=== PATIENT | female | born 1950 | race Two or more races ===

== ENCOUNTER → 2017-02-21 | Outpatient (CLI) | payer OTHER, MEDICAID ==
[~2017-02-21] MED LIST: ALBUAER3 IN; ASPI81TA27 PO; ESCI10TA53; FLUT250M2 INH; GABA-339; HYDR-3682; LACT10SO3 PO; PANT40TA2 PO; PROP60CA8 OR; Rifaximin PO; SPIR25TA88; TIOTCAP IN; TRAM50TA2 PO; TRAZ50T PO; URSO300C9
== END | disposition home or self-care (01) ==
LOC: XYW 09:02
PROVIDERS: ATTEND Internal Medicine
DX: R10.11 Right upper quadrant pain (principal)
CPT/HCPCS: 78226; A9537

== ENCOUNTER → 2017-06-30 | Outpatient (CLI) | payer OTHER, MEDICAID ==
[2017-06-30 15:03] LABS: Basophils # (auto) 0 uL; Basophils % (auto) 0.2 % (0.0-2.0); Eosinophils # (auto) 0 uL; Hematocrit 36.2 % (36.0-46.0); Hemoglobin 11.9 g/dL (12.2-16.2); Lymphocytes % (auto) 20.9 % (10.0-50.0); Mean Corpuscular Hemoglobin 28.3 pg (28.0-32.0); Mean Corpuscular Hgb Conc. 32.9 g/dL (32.0-36.0); Mean Platelet Volume 7.8 fL (6.9-10.8); Monocytes # (auto) 0.7 uL; Monocytes % (auto) 14.9 % (0.0-12.0); Nucleated Red Blood Cells % 0.1 %; Platelet Count (auto) 106 10^3/uL (140-450); Red Cell Distribution Width 18.6 % (11.8-14.3); White Blood Cell 4.7 10^3/uL (4.4-10.8)
[2017-06-30 15:20] LABS: INR 1.18 (0.9-1.15); Partial Thromboplastin Time 29.2 sec (22.64-33.71); Prothrombin Time 12.9 sec (9.37-12.3)
[2017-06-30 15:37] LABS: Albumin 3.1 g/dL (3.4-5.0); BUN/Creatinine Ratio 10.5; Bilirubin, Total 0.9 mg/dL (0.2-1.0); Calcium 8.3 mg/dL (8.5-10.1); Potassium 3.5 mmol/L (3.5-5.1); Total Protein 6.5 g/dL (6.4-8.2)
== END | disposition home or self-care (01) ==
LOC: LAB 14:40
PROVIDERS: ATTEND Internal Medicine
DX: M34.9 Systemic sclerosis, unspecified (principal); K74.5 Biliary cirrhosis, unspecified
CPT/HCPCS: 36415; 80053; 82140; 85025; 85610; 85730

== ENCOUNTER → 2017-09-25 | Day surgery (SDC) | payer OTHER, MEDICAID ==
[2017-09-22 12:24] LABS: Basophils # (auto) 0 uL; Basophils % (auto) 0.1 % (0.0-2.0); Eosinophils # (auto) 0 uL; Hematocrit 35.6 % (36.0-46.0); Hemoglobin 11.5 g/dL (12.2-16.2); Lymphocytes # (auto) 0.9 uL; Lymphocytes % (auto) 22.6 % (10.0-50.0); Mean Corpuscular Hemoglobin 28.3 pg (28.0-32.0); Mean Corpuscular Hgb Conc. 32.2 g/dL (32.0-36.0); Mean Corpuscular Volume 87.8 fL (80.0-100.0); Monocytes # (auto) 0.5 uL; Monocytes % (auto) 12.2 % (0.0-12.0); Neutrophils # (auto) 2.4 uL; Neutrophils % (auto) 65.1 % (37.0-80.0); Platelet Count (auto) 118 10^3/uL (140-450); Red Blood Cells 4.06 10^6/uL (4.0-5.20); Red Cell Distribution Width 18.3 % (11.8-14.3); White Blood Cell 3.8 10^3/uL (4.4-10.8)
[2017-09-22 12:41] LABS: INR 1.14 (0.9-1.15); Partial Thromboplastin Time 28.4 sec (22.64-33.71); Prothrombin Time 12.4 sec (9.37-12.3)
[~2017-09-25] VITALS: Ht 147.3 cm; Wt 65.8 kg
[~2017-09-25] MED LIST changes: +FLUMAZENIL 0.1 MG/ML INJ 10ML MDV IV ONE; +FURO20TA3 PO; +LIDOCAINE VISCOUS 2% 15ML UD ONE; +MIDAZOLAM HCL 5 MG/ML-1ML VIAL ONE; +NALOXONE HCL 0.4 MG/ML VIAL ONE; +SODIUM CHLORIDE LOCK 0 ML ONE; +SUCR1TAB PO; +diphenhdrAMINE HCL 50 MG/1 ML VL ONE; +fentaNYL CITRATE 100 MCG/2 ML VL ONE
== END | disposition home or self-care (01) ==
LOC: GI 07:58
PROVIDERS: ATTEND Internal Medicine Gastroenterology
DX: I85.00 Esophageal varices without bleeding (principal); Z53.8 Procedure and treatment not carried out for other reasons; E66.9 Obesity, unspecified; Z68.30 Body mass index [BMI] 30.0-30.9, adult; J44.9 Chronic obstructive pulmonary disease, unspecified; F32.9 Major depressive disorder, single episode, unspecified
CPT/HCPCS: 36415; 82105; 85025; 85610; 85730; J2250

== ENCOUNTER → 2017-10-05 | Outpatient (CLI) | payer OTHER, MEDICAID ==
[~2017-10-05] MED LIST changes: -FLUMAZENIL 0.1 MG/ML INJ 10ML MDV IV ONE; -LIDOCAINE VISCOUS 2% 15ML UD ONE; -MIDAZOLAM HCL 5 MG/ML-1ML VIAL ONE; -NALOXONE HCL 0.4 MG/ML VIAL ONE; -SODIUM CHLORIDE LOCK 0 ML ONE; -diphenhdrAMINE HCL 50 MG/1 ML VL ONE; -fentaNYL CITRATE 100 MCG/2 ML VL ONE
[2017-10-05 13:16] LABS: Basophils # (auto) 0 uL; Basophils % (auto) 0.2 % (0.0-2.0); Eosinophils # (auto) 0 uL; Hematocrit 36.8 % (36.0-46.0); Hemoglobin 11.7 g/dL (12.2-16.2); Lymphocytes # (auto) 1.3 uL; Mean Corpuscular Hemoglobin 28.2 pg (28.0-32.0); Mean Corpuscular Hgb Conc. 31.8 g/dL (32.0-36.0); Mean Corpuscular Volume 88.8 fL (80.0-100.0); Monocytes # (auto) 0.5 uL; Monocytes % (auto) 12.5 % (0.0-12.0); Neutrophils # (auto) 2.5 uL; Neutrophils % (auto) 58.3 % (37.0-80.0); Platelet Count (auto) 121 10^3/uL (140-450); Red Blood Cells 4.15 10^6/uL (4.0-5.20); Red Cell Distribution Width 18.1 % (11.8-14.3); White Blood Cell 4.4 10^3/uL (4.4-10.8)
[2017-10-05 13:28] LABS: INR 1.09 (0.9-1.15); Prothrombin Time 11.9 sec (9.37-12.3)
[2017-10-05 13:47] LABS: Albumin 3.2 g/dL (3.4-5.0); BUN/Creatinine Ratio 11.2; Bilirubin, Total 0.9 mg/dL (0.2-1.0); Calcium 8.5 mg/dL (8.5-10.1); Potassium 3.7 mmol/L (3.5-5.1); Total Protein 6.8 g/dL (6.4-8.2)
== END | disposition home or self-care (01) ==
LOC: LAB 12:45
PROVIDERS: ATTEND Internal Medicine
DX: G47.00 Insomnia, unspecified (principal); M34.9 Systemic sclerosis, unspecified; K74.3 Primary biliary cirrhosis
CPT/HCPCS: 36415; 80053; 82140; 84439; 84443; 85025; 85610; 85652; 85730

== ENCOUNTER → 2017-12-07 | Outpatient (CLI) | payer OTHER, MEDICAID ==
[2017-12-07 13:29] LABS: Basophils # (auto) 0 uL; Basophils % (auto) 0.1 % (0.0-2.0); Eosinophils # (auto) 0 uL; Hematocrit 35.6 % (36.0-46.0); Hemoglobin 11.5 g/dL (12.2-16.2); Lymphocytes # (auto) 0.5 uL; Lymphocytes % (auto) 8.4 % (10.0-50.0); Mean Corpuscular Hemoglobin 27.6 pg (28.0-32.0); Mean Corpuscular Hgb Conc. 32.4 g/dL (32.0-36.0); Mean Corpuscular Volume 85.2 fL (80.0-100.0); Monocytes # (auto) 0.2 uL; Monocytes % (auto) 4.4 % (0.0-12.0); Neutrophils # (auto) 4.7 uL; Neutrophils % (auto) 87.1 % (37.0-80.0); Platelet Count (auto) 105 10^3/uL (140-450); Red Blood Cells 4.18 10^6/uL (4.0-5.20); Red Cell Distribution Width 18.5 % (11.8-14.3); White Blood Cell 5.4 10^3/uL (4.4-10.8)
[2017-12-07 13:41] LABS: INR 1.1 (0.9-1.15); Partial Thromboplastin Time 27.4 sec (22.64-33.71)
[2017-12-07 14:08] LABS: Albumin 3.2 g/dL (3.4-5.0); BUN/Creatinine Ratio 16.3; Bilirubin, Total 0.8 mg/dL (0.2-1.0); Calcium 8.4 mg/dL (8.5-10.1); Total Protein 6.8 g/dL (6.4-8.2)
== END | disposition home or self-care (01) ==
LOC: LAB 13:03
PROVIDERS: ATTEND Internal Medicine
DX: K74.3 Primary biliary cirrhosis (principal)
CPT/HCPCS: 36415; 80053; 82140; 85025; 85610; 85730

== ENCOUNTER → 2018-06-15 | Outpatient (CLI) | payer OTHER, MEDICAID ==
[~2018-06-15] MED LIST changes: +PROP60CA34 OR; -PROP60CA8 OR
[2018-06-15 15:05] LABS: Albumin 2.8 g/dL (3.4-5.0); BUN/Creatinine Ratio 9.8; Calcium 8.3 mg/dL (8.5-10.1); Potassium 3.6 mmol/L (3.5-5.1)
[2018-06-15 15:08] LABS: Bilirubin, Total 0.9 mg/dL (0.2-1.0); Total Protein 6.1 g/dL (6.4-8.2)
== END | disposition home or self-care (01) ==
LOC: LAB 14:23
PROVIDERS: ATTEND Internal Medicine
DX: K74.3 Primary biliary cirrhosis (principal); E03.9 Hypothyroidism, unspecified
CPT/HCPCS: 36415; 80053; 82140; 84439; 84443

== ENCOUNTER → 2018-08-24 | Outpatient (CLI) | payer OTHER, MEDICAID ==
[2018-08-24 14:47] LABS: Basophils # (auto) 0 uL; Basophils % (auto) 0.3 % (0.0-2.0); Eosinophils # (auto) 0 uL; Hematocrit 36.9 % (36.0-46.0); Hemoglobin 11.8 g/dL (12.2-16.2); Lymphocytes # (auto) 0.7 uL; Lymphocytes % (auto) 21.5 % (10.0-50.0); Mean Corpuscular Hemoglobin 29.7 pg (28.0-32.0); Mean Corpuscular Hgb Conc. 32.1 g/dL (32.0-36.0); Mean Corpuscular Volume 92.4 fL (80.0-100.0); Monocytes # (auto) 0.4 uL; Monocytes % (auto) 11.8 % (0.0-12.0); Neutrophils # (auto) 2.1 uL; Neutrophils % (auto) 66.4 % (37.0-80.0); Nucleated Red Blood Cells % 0.1 %; Platelet Count (auto) 105 10^3/uL (140-450); Red Blood Cells 3.99 10^6/uL (4.0-5.20); White Blood Cell 3.1 10^3/uL (4.4-10.8)
[2018-08-24 14:58] LABS: INR 1.09 (0.9-1.15); Partial Thromboplastin Time 26.6 sec (23.78-33.04); Prothrombin Time 11.6 sec (9.27-12.13)
[2018-08-24 15:10] LABS: Potassium 4.2 mmol/L (3.5-5.1)
[2018-08-24 15:19] LABS: Albumin 3.1 g/dL (3.4-5.0); BUN/Creatinine Ratio 11.1; Bilirubin, Total 0.9 mg/dL (0.2-1.0); Calcium 9.2 mg/dL (8.5-10.1); Total Protein 6.2 g/dL (6.4-8.2)
== END | disposition home or self-care (01) ==
LOC: LAB 14:01
PROVIDERS: ATTEND Internal Medicine
DX: K74.3 Primary biliary cirrhosis (principal)
CPT/HCPCS: 36415; 80053; 82140; 85025; 85610; 85730

== ENCOUNTER → 2018-08-30 | Outpatient (CLI) | payer OTHER, MEDICAID | END | disposition home or self-care (01) | LOC: LAB 13:41 | PROVIDERS: ATTEND Internal Medicine | DX: K72.90 Hepatic failure, unspecified without coma (principal) | CPT/HCPCS: 82140 ==

== ENCOUNTER → 2018-10-26 | Day surgery (SDC) | payer OTHER, MEDICAID ==
[2018-10-23 11:07] LABS: Basophils # (auto) 0 uL; Basophils % (auto) 0.4 % (0.0-2.0); Eosinophils # (auto) 0 uL; Hematocrit 37.3 % (36.0-46.0); Hemoglobin 12.1 g/dL (12.2-16.2); Lymphocytes # (auto) 0.9 uL; Lymphocytes % (auto) 24.3 % (10.0-50.0); Mean Corpuscular Hemoglobin 29.6 pg (28.0-32.0); Mean Corpuscular Hgb Conc. 32.4 g/dL (32.0-36.0); Mean Corpuscular Volume 91.2 fL (80.0-100.0); Monocytes # (auto) 0.5 uL; Monocytes % (auto) 13.7 % (0.0-12.0); Neutrophils # (auto) 2.4 uL; Neutrophils % (auto) 61.6 % (37.0-80.0); Nucleated Red Blood Cells % 0.1 %; Platelet Count (auto) 102 10^3/uL (140-450); Red Cell Distribution Width 17.9 % (11.8-14.3); White Blood Cell 3.8 10^3/uL (4.4-10.8)
[2018-10-23 11:20] LABS: INR 1.17 (0.9-1.15); Partial Thromboplastin Time 27.6 sec (23.78-33.04); Prothrombin Time 12.4 sec (9.27-12.13)
[2018-10-23 11:22] LABS: Urine Bacteria NONE SEEN /hpf (None Seen); Urine Blood TRACE /uL (Negative); Urine Specific Gravity 1.023 (1.001-1.035); Urine WBC 22 /hpf (0 - 5)
[~2018-10-26] VITALS: Ht 147.3 cm; Wt 69.9 kg
[~2018-10-26] MED LIST changes: +ALBU18 IN; +ESCI10TA53 PO; +GABA-339 PO; +HYDR-3682 PO; +LIDOCAINE VISCOUS 2% 15ML UD ONE; +MIDAZOLAM HCL 5 MG/ML-1ML VIAL ONE; +POTA-167 PO; +PROP60CA34 PO; +RIFA550T PO; +SODIUM CHLORIDE LOCK 10 ML ONE; +SPIR25TA88 PO; +TRAZ50TA2 PO; +URSO300C9 PO; +diphenhdrAMINE HCL 50 MG/1 ML VL ONE; +fentaNYL CITRATE 100 MCG/2 ML VL ONE
[2018-10-26 10:31] VITALS: BP 99/62
== END | disposition home or self-care (01) ==
LOC: MERGE 08:51 → GI 08:51
PROVIDERS: ATTEND Internal Medicine Gastroenterology
DX: I86.4 Gastric varices (principal); K74.60 Unspecified cirrhosis of liver; I85.10 Secondary esophageal varices without bleeding; J44.9 Chronic obstructive pulmonary disease, unspecified; E66.9 Obesity, unspecified; F41.9 Anxiety disorder, unspecified; F32.9 Major depressive disorder, single episode, unspecified; F17.210 Nicotine dependence, cigarettes, uncomplicated; K21.9 Gastro-esophageal reflux disease without esophagitis; M06.9 Rheumatoid arthritis, unspecified; Z80.8 Family history of malignant neoplasm of other organs or systems
CPT/HCPCS: 36415; 43235; 81001; 85025; 85610; 85730; A6257; J2250; J3010; J7030

== ENCOUNTER → 2018-12-03 | Outpatient (CLI) | payer OTHER, MEDICAID ==
[~2018-12-03] MED LIST changes: -LIDOCAINE VISCOUS 2% 15ML UD ONE; -MIDAZOLAM HCL 5 MG/ML-1ML VIAL ONE; -SODIUM CHLORIDE LOCK 10 ML ONE; -diphenhdrAMINE HCL 50 MG/1 ML VL ONE; -fentaNYL CITRATE 100 MCG/2 ML VL ONE
== END | disposition home or self-care (01) ==
LOC: LAB 14:29
PROVIDERS: ATTEND Internal Medicine
DX: R10.11 Right upper quadrant pain (principal)
CPT/HCPCS: 36415; 82565; 84520

== ENCOUNTER → 2019-03-04 | Outpatient (CLI) | payer OTHER, MEDICAID ==
[2019-03-04 13:59] LABS: Basophils # (auto) 0 uL; Basophils % (auto) 0.3 % (0.0-2.0); Eosinophils # (auto) 0 uL; Hematocrit 36.3 % (36.0-46.0); Hemoglobin 11.7 g/dL (12.2-16.2); Lymphocytes # (auto) 0.8 uL; Lymphocytes % (auto) 23.4 % (10.0-50.0); Mean Corpuscular Hemoglobin 28.8 pg (28.0-32.0); Mean Corpuscular Hgb Conc. 32.3 g/dL (32.0-36.0); Monocytes # (auto) 0.4 uL; Monocytes % (auto) 11.5 % (0.0-12.0); Neutrophils # (auto) 2.1 uL; Neutrophils % (auto) 64.8 % (37.0-80.0); Platelet Count (auto) 90 10^3/uL (140-450); Red Blood Cells 4.08 10^6/uL (4.0-5.20); Red Cell Distribution Width 17.3 % (11.8-14.3); White Blood Cell 3.2 10^3/uL (4.4-10.8)
[2019-03-04 14:27] LABS: INR 1.15 (0.9-1.15); Partial Thromboplastin Time 24.3 sec (23.64-32.05)
[2019-03-04 14:44] LABS: Albumin 2.9 g/dL (3.4-5.0); Calcium 8.8 mg/dL (8.5-10.1)
[2019-03-04 14:49] LABS: Bilirubin, Total 1.3 mg/dL (0.2-1.0); Total Protein 5.9 g/dL (6.4-8.2)
== END | disposition home or self-care (01) ==
LOC: LAB 13:44
PROVIDERS: ATTEND Internal Medicine Gastroenterology
DX: K74.69 Other cirrhosis of liver (principal); K72.90 Hepatic failure, unspecified without coma; R18.8 Other ascites; J44.9 Chronic obstructive pulmonary disease, unspecified; K21.9 Gastro-esophageal reflux disease without esophagitis
CPT/HCPCS: 36415; 80053; 82105; 85025; 85610; 85730

== ENCOUNTER → 2019-05-10 | Outpatient (CLI) | payer OTHER, MEDICAID ==
[~2019-05-10] MED LIST changes: +ASPI-404 PO; -ASPI81TA27 PO
[2019-05-10 16:30] LABS: Basophils # (auto) 0 uL; Basophils % (auto) 0.2 % (0.0-2.0); Eosinophils # (auto) 0 uL; Hematocrit 34.9 % (36.0-46.0); Hemoglobin 11.3 g/dL (12.2-16.2); Lymphocytes # (auto) 0.7 uL; Lymphocytes % (auto) 21.5 % (10.0-50.0); Mean Corpuscular Hemoglobin 28.5 pg (28.0-32.0); Mean Corpuscular Hgb Conc. 32.4 g/dL (32.0-36.0); Mean Corpuscular Volume 88.1 fL (80.0-100.0); Monocytes # (auto) 0.3 uL; Monocytes % (auto) 9.9 % (0.0-12.0); Neutrophils # (auto) 2.2 uL; Neutrophils % (auto) 68.4 % (37.0-80.0); Platelet Count (auto) 79 10^3/uL (140-450); Red Blood Cells 3.96 10^6/uL (4.0-5.20); Red Cell Distribution Width 18.8 % (11.8-14.3); White Blood Cell 3.2 10^3/uL (4.4-10.8)
[2019-05-10 17:03] LABS: Albumin 3.1 g/dL (3.4-5.0); BUN/Creatinine Ratio 12.3; Calcium 8.5 mg/dL (8.5-10.1); Potassium 3.6 mmol/L (3.5-5.1)
[2019-05-10 17:08] LABS: Bilirubin, Total 1.1 mg/dL (0.2-1.0); Total Protein 5.8 g/dL (6.4-8.2)
== END | disposition home or self-care (01) ==
LOC: LAB 16:02
PROVIDERS: ATTEND Internal Medicine
DX: K21.9 Gastro-esophageal reflux disease without esophagitis (principal); K74.3 Primary biliary cirrhosis
CPT/HCPCS: 36415; 80053; 84439; 84443; 84484; 85025; 85652

== ENCOUNTER → 2019-08-21 | Outpatient (CLI) | payer OTHER, MEDICAID | END | disposition home or self-care (01) | LOC: XY 09:27 | PROVIDERS: ATTEND Internal Medicine | DX: I06.1 Rheumatic aortic insufficiency (principal); R00.1 Bradycardia, unspecified; I44.7 Left bundle-branch block, unspecified; I27.20 Pulmonary hypertension, unspecified | CPT/HCPCS: 93306 ==

== ENCOUNTER → 2019-08-21 | Outpatient (CLI) | payer OTHER, MEDICAID ==
[2019-08-21 11:31] LABS: Basophils # (auto) 0 uL; Basophils % (auto) 0.4 % (0.0-2.0); Eosinophils # (auto) 0 uL; Hematocrit 33.8 % (36.0-46.0); Lymphocytes # (auto) 0.7 uL; Lymphocytes % (auto) 22.3 % (10.0-50.0); Mean Corpuscular Hemoglobin 28.5 pg (28.0-32.0); Mean Corpuscular Hgb Conc. 32.6 g/dL (32.0-36.0); Mean Corpuscular Volume 87.6 fL (80.0-100.0); Monocytes # (auto) 0.4 uL; Monocytes % (auto) 11.8 % (0.0-12.0); Neutrophils # (auto) 2.1 uL; Neutrophils % (auto) 65.5 % (37.0-80.0); Platelet Count (auto) 77 10^3/uL (140-450); Red Blood Cells 3.86 10^6/uL (4.0-5.20); Red Cell Distribution Width 18.7 % (11.8-14.3); White Blood Cell 3.2 10^3/uL (4.4-10.8)
[2019-08-21 11:44] LABS: Urine Bacteria MANY /hpf (None Seen); Urine Blood Negative /uL (Negative); Urine Specific Gravity 1.007 (1.001-1.035); Urine WBC 15 /hpf (0 - 5)
[2019-08-21 11:50] LABS: Potassium 3.1 mmol/L (3.5-5.1)
[2019-08-21 11:55] LABS: BUN/Creatinine Ratio 12.4; Bilirubin, Total 1.5 mg/dL (0.2-1.0)
[2019-08-21 12:16] LABS: INR 1.35 (0.9-1.15)
== END | disposition home or self-care (01) ==
LOC: LAB 10:49
PROVIDERS: ATTEND Internal Medicine Gastroenterology
DX: K21.9 Gastro-esophageal reflux disease without esophagitis (principal); I20.9 Angina pectoris, unspecified; K74.69 Other cirrhosis of liver; F41.9 Anxiety disorder, unspecified
CPT/HCPCS: 36415; 80053; 80061; 81001; 82105; 84439; 84443; 85025; 85610; 85652

== ENCOUNTER → 2019-09-04 | Outpatient (CLI) | payer OTHER, MEDICAID ==
[~2019-09-04] VITALS: Ht 147.3 cm; Wt 65.8 kg
[~2019-09-04] MED LIST changes: +ADENOSINE 55 MG in GIVE UN-DILUTED 0 ML IV STA
== END | disposition home or self-care (01) ==
LOC: XY 08:10
PROVIDERS: ATTEND Internal Medicine
DX: I48.91 Unspecified atrial fibrillation (principal); I10 Essential (primary) hypertension
CPT/HCPCS: 78452; 93017; A9500; J0153

== ENCOUNTER → 2019-11-13 | Outpatient (CLI) | payer OTHER, MEDICAID ==
[~2019-11-13] MED LIST changes: -ADENOSINE 55 MG in GIVE UN-DILUTED 0 ML IV STA
[2019-11-13 14:41] LABS: Basophils # (auto) 0 uL; Basophils % (auto) 0.2 % (0.0-2.0); Eosinophils # (auto) 0 uL; Hematocrit 35.7 % (36.0-46.0); Hemoglobin 11.4 g/dL (12.2-16.2); Lymphocytes # (auto) 0.6 uL; Mean Corpuscular Hemoglobin 28.9 pg (28.0-32.0); Mean Corpuscular Hgb Conc. 31.9 g/dL (32.0-36.0); Mean Corpuscular Volume 90.5 fL (80.0-100.0); Monocytes # (auto) 0.5 uL; Monocytes % (auto) 13.6 % (0.0-12.0); Neutrophils # (auto) 2.5 uL; Neutrophils % (auto) 69.2 % (37.0-80.0); Platelet Count (auto) 99 10^3/uL (140-450); Red Blood Cells 3.94 10^6/uL (4.0-5.20); White Blood Cell 3.6 10^3/uL (4.4-10.8)
[2019-11-13 14:43] LABS: Red Cell Distribution Width 24.4 % (11.8-14.3)
[2019-11-13 14:49] LABS: Urine Bacteria FEW /hpf (None Seen); Urine Blood Negative /uL (Negative); Urine Hyaline Cast MANY /lpf (0 - 2); Urine WBC 36 /hpf (0 - 5)
[2019-11-13 14:58] LABS: Albumin 2.4 g/dL (3.4-5.0); Calcium 8.1 mg/dL (8.5-10.1)
[2019-11-13 15:01] LABS: BUN/Creatinine Ratio 14.7; Bilirubin, Total 1.4 mg/dL (0.2-1.0)
== END | disposition home or self-care (01) ==
LOC: LAB 14:00
PROVIDERS: ATTEND Internal Medicine
DX: K74.3 Primary biliary cirrhosis (principal); M34.9 Systemic sclerosis, unspecified
CPT/HCPCS: 36415; 80053; 81001; 85025

== ENCOUNTER 2019-11-25 18:16 | Inpatient (IN) | payer OTHER, MEDICAID ==
[~2019-11-25] VITALS: Ht 142.2 cm; Wt 74.2 kg
[2019-11-25 20:04] LABS: Basophils # (auto) 0 10 ^3/uL (0-0.2); Basophils % (auto) 0.2 % (0.0-2.0); Eosinophils # (auto) 0 10 ^3/uL (0-0.8); Hematocrit 35.6 % (36.0-46.0); Hemoglobin 11.6 g/dL (12.2-16.2); Lymphocytes # (auto) 0.8 10 ^3/uL (0.4-5.4); Lymphocytes % (auto) 18.7 % (10.0-50.0); Mean Corpuscular Hemoglobin 29.5 pg (28.0-32.0); Mean Corpuscular Hgb Conc. 32.5 g/dL (32.0-36.0); Mean Corpuscular Volume 90.6 fL (80.0-100.0); Monocytes # (auto) 0.6 10 ^3/uL (0-1.3); Monocytes % (auto) 15.6 % (0.0-12.0); Neutrophils # (auto) 2.7 10 ^3/uL (1.6-8.6); Neutrophils % (auto) 65.5 % (37.0-80.0); Nucleated Red Blood Cells % 0.1 %; Platelet Count (auto) 85 10^3/uL (140-450); Red Blood Cells 3.94 10^6/uL (4.0-5.20); White Blood Cell 4.2 10^3/uL (4.4-10.8)
[2019-11-25 20:07] LABS: Red Cell Distribution Width 22.8 % (11.8-14.3)
[2019-11-25] MEDS ORDERED: FUROSEMIDE 20 MG/2 ML VIAL IV ONE (20:15)
[2019-11-25 20:43] LABS: Blood Urea Nitrogen 16 mg/dL (7-18); Calcium 7.9 mg/dL (8.5-10.1); Carbon Dioxide 20 mmol/L (21-32); Glucose 96 mg/dL (74-106)
[2019-11-25 20:48] LABS: Alanine Aminotransferase 19 U/L (13-56); Albumin 2.4 g/dL (3.4-5.0); Aspartate Aminotransferase 40 U/L (15-37); Bilirubin, Total 1.2 mg/dL (0.2-1.0); Magnesium 1.8 mg/dL (1.6-2.6)
[2019-11-25 21:05] LABS: Alkaline Phosphatase 117 U/L (45-117); Anion Gap 8 (5-15); BUN/Creatinine Ratio 18.6; Chloride 111 mmol/L (98-107); GFR African American 84 mL/min; GFR Non-African American 70 mL/min; Potassium 3.4 mmol/L (3.5-5.1); Sodium 139 mmol/L (136-145); Total Protein 5.3 g/dL (6.4-8.2)
[2019-11-25] MEDS ORDERED: IOHEXOL 300 MG/ML 100ML BOTTLE IJ ONE (21:57)
[2019-11-25] MEDS ORDERED: LACTULOSE 20Gm/30ML SOLN PO ONE (23:00)
[2019-11-25] MEDS ORDERED: metroNIDAZOLE 500MG/100ML 100 ML IV ONE (23:30)
[2019-11-25] MEDS ORDERED: CIPROFLOXACIN 400MG/200ML 200 ML IV ONE (23:30)
[2019-11-25] MEDS ORDERED: SODIUM CHLORIDE 0.9% 1,000 ML IV ONE (23:30)
[2019-11-26 01:14] LABS: Urine Bacteria FEW /hpf (None Seen); Urine Blood Negative /uL (Negative); Urine Hyaline Cast FEW /lpf (0 - 2); Urine Specific Gravity 1.015 (1.001-1.035)
[2019-11-26 01:15] LABS: Urine WBC 5 /hpf (0 - 5)
[2019-11-26] MEDS ORDERED: diphenhdrAMINE HCL 50 MG/1 ML VL IV ONE (02:00)
[2019-11-26] MEDS ORDERED: ONDANSETRON HCL 4 MG/2 ML VIAL IV PRN (02:30)
[2019-11-26] MEDS ORDERED: TEMAZEPAM 15 MG CAP PO PRN (02:30)
[2019-11-26] MEDS ORDERED: MORPHINE SULF INJ 2 MG/ML SYRINGE 1ML IV PRN (03:15)
[2019-11-26] MEDS ORDERED: NITROGLYCERIN 0.4 MG SL TAB SL PRN (03:15)
[2019-11-26 03:29] LABS: INR 1.36 (0.9-1.15); Partial Thromboplastin Time 29.9 sec (23.64-32.05)
[2019-11-26] MEDS ORDERED: ENOXAPARIN SOD 100 MG/1 ML SYRINGE SC ONE (04:00)
[2019-11-26 05:00] VITALS: BP 109/58
[2019-11-26] MEDS: PROPRANOLOL HCL 20 MG TAB PO SCH ×2 (06:24→14:00)
[2019-11-26 09:00] VITALS: BP 104/51
[2019-11-26] MEDS ORDERED: ASPirin 81 mg TAB PO SCH (10:00)
[2019-11-26] MEDS: LACTULOSE 20Gm/30ML SOLN PO SCH ×2 (10:01→22:40)
[2019-11-26] MEDS: cefTRIAXone 1GM/50ML D5W 50 ML IV SCH (10:01)
[2019-11-26] MEDS: SPIRONOLACTONE 25 MG TAB PO SCH (10:01)
[2019-11-26] MEDS: PANTOPRAZOLE 40 MG TAB PO SCH ×2 (10:02→22:41)
[2019-11-26] MEDS: rifAXIMin 550 MG TAB PO SCH ×2 (10:02→22:41)
[2019-11-26] MEDS: FUROSEMIDE 40 MG TAB PO SCH (10:02)
[2019-11-26] MEDS: URSODIOL 300 MG CAP PO SCH ×2 (10:08→22:40)
[2019-11-26 12:56] VITALS: BP 106/39
[2019-11-26] MEDS ORDERED: ISOS30TA4 PO (15:29)
[2019-11-26] MEDS ORDERED: PROP10TA57 PO (15:29)
[2019-11-26 17:05] VITALS: BP 109/48
[2019-11-26 20:15] VITALS: BP 97/39
[2019-11-26 22:00] VITALS: BP 97/39
[2019-11-27 05:00] VITALS: BP 103/52
[2019-11-27 06:03] LABS: Basophils # (auto) 0 10 ^3/uL (0-0.2); Basophils % (auto) 0.2 % (0.0-2.0); Eosinophils # (auto) 0 10 ^3/uL (0-0.8); Hematocrit 30.7 % (36.0-46.0); Hemoglobin 10.1 g/dL (12.2-16.2); Lymphocytes # (auto) 0.7 10 ^3/uL (0.4-5.4); Lymphocytes % (auto) 23.5 % (10.0-50.0); Mean Corpuscular Hemoglobin 29.5 pg (28.0-32.0); Mean Corpuscular Volume 89.4 fL (80.0-100.0); Monocytes # (auto) 0.5 10 ^3/uL (0-1.3); Neutrophils # (auto) 1.8 10 ^3/uL (1.6-8.6); Neutrophils % (auto) 60.3 % (37.0-80.0); Nucleated Red Blood Cells % 0.3 %; Platelet Count (auto) 76 10^3/uL (140-450); Red Blood Cells 3.44 10^6/uL (4.0-5.20)
[2019-11-27 06:18] LABS: Potassium 3.1 mmol/L (3.5-5.1)
[2019-11-27 06:24] LABS: Albumin 2.2 g/dL (3.4-5.0); BUN/Creatinine Ratio 14.8; Bilirubin, Total 1.2 mg/dL (0.2-1.0); Total Protein 4.8 g/dL (6.4-8.2)
[2019-11-27 06:40] LABS: Red Cell Distribution Width 22.7 % (11.8-14.3)
[2019-11-27 09:00] VITALS: BP 94/41
[2019-11-27] MEDS: SPIRONOLACTONE 25 MG TAB PO SCH (10:00)
[2019-11-27] MEDS ORDERED: ASPirin 81 mg TAB PO SCH (10:00)
[2019-11-27] MEDS: FUROSEMIDE 40 MG TAB PO SCH (10:00)
[2019-11-27] MEDS: LACTULOSE 20Gm/30ML SOLN PO SCH ×2 (10:50→21:57)
[2019-11-27] MEDS: cefTRIAXone 1GM/50ML D5W 50 ML IV SCH (10:50)
[2019-11-27] MEDS: rifAXIMin 550 MG TAB PO SCH ×2 (10:51→21:57)
[2019-11-27] MEDS: URSODIOL 300 MG CAP PO SCH ×2 (10:51→21:58)
[2019-11-27] MEDS: PANTOPRAZOLE 40 MG TAB PO SCH ×2 (10:51→21:57)
[2019-11-27 13:00] VITALS: BP 101/68
[2019-11-27 17:00] VITALS: BP 109/63
[2019-11-27 22:00] VITALS: BP 113/47
[2019-11-28 02:00] VITALS: BP 97/53
[2019-11-28 05:00] VITALS: BP 94/41
[2019-11-28 09:00] VITALS: BP 94/61
[2019-11-28] MEDS: cefTRIAXone 1GM/50ML D5W 50 ML IV SCH (09:28)
[2019-11-28] MEDS: URSODIOL 300 MG CAP PO SCH (10:00)
[2019-11-28] MEDS: FUROSEMIDE 40 MG TAB PO SCH (10:00)
[2019-11-28] MEDS: LACTULOSE 20Gm/30ML SOLN PO SCH (10:00)
[2019-11-28 10:29] VITALS: BP 94/61
[2019-11-28] MEDS: PANTOPRAZOLE 40 MG TAB PO SCH (11:41)
[2019-11-28] MEDS: SPIRONOLACTONE 25 MG TAB PO SCH (11:41)
[2019-11-28] MEDS: rifAXIMin 550 MG TAB PO SCH (11:44)
== END 2019-11-28 14:05 | disposition hospice, home (50) | DRG 432 ==
LOC: ER 18:16 → TELE-WESTW 18:17
PROVIDERS: ADMIT Nurse Practitioner; ATTEND Family Medicine
DX: K74.60 Unspecified cirrhosis of liver (principal); I81 Portal vein thrombosis; N39.0 Urinary tract infection, site not specified; E44.0 Moderate protein-calorie malnutrition; K50.90 Crohn's disease, unspecified, without complications; R18.8 Other ascites; F17.200 Nicotine dependence, unspecified, uncomplicated; J44.9 Chronic obstructive pulmonary disease, unspecified; M06.9 Rheumatoid arthritis, unspecified; M46.00 Spinal enthesopathy, site unspecified; Z51.5 Encounter for palliative care; M51.37 Other intervertebral disc degeneration, lumbosacral region; K72.90 Hepatic failure, unspecified without coma; I70.0 Atherosclerosis of aorta; Z68.36 Body mass index [BMI] 36.0-36.9, adult; Z80.0 Family history of malignant neoplasm of digestive organs; Z80.51 Family history of malignant neoplasm of kidney; Z80.3 Family history of malignant neoplasm of breast; Z80.49 Family history of malignant neoplasm of other genital organs; Z80.8 Family history of malignant neoplasm of other organs or systems; Z83.3 Family history of diabetes mellitus; Z90.89 Acquired absence of other organs
CPT/HCPCS: 36415; 71045; 74177; 80053; 81001; 82140; 83605; 83735; 83880; 84484; 85025; 85610; 85730; 93005; 93971; 96361; 96365; 96372; 96375; G0378; J0696; J3490